=== PATIENT | male | born 1985 | race Caucasian/White ===

== ENCOUNTER 2017-09-21 20:26 | Emergency (ER) | payer OTHER ==
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
--- NOTE | 2017-09-21 22:32 | RADIOLOGY REPORT ---
EXAMINATION: XR HAND, RIGHT XR ELBOW, LEFT CLINICAL INFORMATION: Right hand and left elbow pain COMPARISON: None TECHNIQUE: PA, lateral, and oblique views of the right hand and AP, lateral, and both oblique views of the left elbow. FINDINGS: Right hand: No fracture. Alignment is anatomic. Joint spaces are maintained. No erosions or soft tissue calcifications. Left elbow: No fracture or malalignment. No joint effusion. Bone mineralization is normal. Joint space is well-preserved. A small enthesopathic spurs present at the triceps tendon insertion on the olecranon. IMPRESSION: 1. No acute osseous abnormalities of the right hand and left elbow. 2. Small enthesopathic spur at the left triceps tendon insertion on the olecranon.
[2017-09-21 22:35] VITALS: BP 132/86
== END 2017-09-21 22:36 ==
LOC: ERH 20:26
DX: S63.91XA Sprain of unspecified part of right wrist and hand, initial encounter (principal); S20.219A Contusion of unspecified front wall of thorax, initial encounter; V49.40XA Driver injured in collision with unspecified motor vehicles in traffic accident, initial encounter; Y92.9 Unspecified place or not applicable
CPT/HCPCS: 73080-LT; 73130-RT